=== PATIENT | male | born 1985 | race Two or more races ===

== ENCOUNTER 2017-12-15 19:03 | Emergency (ER) | payer OTHER ==
[~2017-12-15] VITALS: Ht 170.2 cm; Wt 58.2 kg
[2017-12-15] MEDS ORDERED: ONDANSETRON ODT 4 MG ONE (19:43)
[2017-12-15 19:48] LABS: BASOPHILS # (AUTO) 0.04 x10^3/uL (0-0.1); BASOPHILS % (AUTO) 0 % (0-1); EOSINOPHILS # (AUTO) 0.19 x10^3/uL (0-0.4); EOSINOPHILS % (AUTO) 2 % (1-7); LYMPHOCYTES # (AUTO) 3.14 x10^3/uL (1-3.4); LYMPHOCYTES % (AUTO) 31 % (22-44); MD NO; MEAN CORPUSCULAR HEMOGLOBIN 27.9 pg (27.5-34.5); MEAN CORPUSCULAR HGB CONC 33.9 g/dL (33.2-36.2); MEAN CORPUSCULAR VOLUME 82.4 fL (81-97); MEAN PLATELET VOLUME 8.9 fL (7.4-10.4); MONOCYTES # (AUTO) 0.86 x10^3/uL (0.2-0.8); MONOCYTES % (AUTO) 8 % (2-9); NEUTROPHILS % (AUTO) 59 % (42-75); PLATELET COUNT 243 x10^3/uL (130-400); RED BLOOD COUNT 5.72 x10^6/uL (4.38-5.82)
[2017-12-15 19:58] LABS: ALANINE AMINOTRANSFERASE 18 U/L (12-78); ALBUMIN 4.3 g/dL (3.4-5.0); ANION GAP 7 mmol/L (5-15); CALCIUM 9.2 mg/dL (8.5-10.1); CHLORIDE 106 mmol/L (98-107); CREATININE 0.94 mg/dL (0.7-1.3)
[2017-12-15 20:00] LABS: ALKALINE PHOSPHATASE 102 U/L (45-117); BILIRUBIN,TOTAL 1.9 mg/dL (0.2-1.0); TOTAL PROTEIN 7.5 g/dL (6.4-8.2)
[2017-12-15] MEDS ORDERED: ONDANSETRON ODT 4 MG PO ONE (20:00)
[2017-12-15 20:13] LABS: MICROSCOPIC NOT IND
[2017-12-15 20:17] LABS: CULTURE INDICATED? NO
[2017-12-15] MEDS ORDERED: FAMOTIDINE 20 MG TABLET PO ONE (20:30)
[2017-12-15] MEDS ORDERED: MAALOX/HYOSCYAMINE/LIDOCAINE 45 ML BTL PO ONE (20:30)
[2017-12-15] MEDS ORDERED: MAALOX/HYOSCYAMINE/LIDOCAINE 45 ML BTL ONE (20:34)
[2017-12-15] MEDS ORDERED: FAMOTIDINE 20 MG TABLET ONE (20:35)
[2017-12-15 20:52] VITALS: BP 110/56
== END 2017-12-15 20:54 | disposition home or self-care (01) ==
LOC: ED 20:48
DX: R10.13 Epigastric pain (principal); R11.0 Nausea
CPT/HCPCS: 36415; 76700; 80053; 81003; 83690; 85025; 99285; Q0162

== ENCOUNTER 2021-03-15 12:45 | Emergency (ER) | payer OTHER ==
[~2021-03-15] VITALS: Ht 170.2 cm; Wt 60.7 kg
[2021-03-15 13:01] VITALS: BP 104/57
--- NOTE | 2021-03-15 13:39 | NUR ---
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
[2021-03-15] MEDS ORDERED: IBUPROFEN 800 MG TABLET PO ONE (14:00)
[2021-03-15] MEDS ORDERED: IBUPROFEN 800 MG TABLET ONE (14:12)
== END 2021-03-15 16:10 | disposition home or self-care (01) ==
LOC: ED 16:08
DX: J06.9 Acute upper respiratory infection, unspecified (principal); I45.19 Other right bundle-branch block; Z20.822 Contact with and (suspected) exposure to COVID-19
CPT/HCPCS: 71045; 93005; 99285; U0003; U0005